=== PATIENT | male | born 1985 | race Caucasian/White ===

== ENCOUNTER 2022-05-15 00:31 | Emergency (ER) | payer OTHER ==
[2022-05-15] MEDS ORDERED: Midazolam 1 MG/ML 2 ML SDV ONE (02:15)
[2022-05-15] MEDS ORDERED: Sodium Chloride 0.9% 100 ML ONE (02:16)
[2022-05-15] MEDS ORDERED: cefTRIAXone 2 GM Vial ONE (02:16)
[2022-05-15] MEDS ORDERED: HYDROmorphone 1 MG/ML Syringe ONE (02:16)
[2022-05-15] MEDS ORDERED: Lidocaine 1% 10 ML MDV ONE (02:16)
== END 2022-05-15 03:14 | disposition home or self-care (01) ==
LOC: JD.ED 00:31
DX: L02.416 Cutaneous abscess of left lower limb (principal); L03.116 Cellulitis of left lower limb; Z79.899 Other long term (current) drug therapy
CPT/HCPCS: 36415; 80053; 83605; 85025; 87040; 99283